=== PATIENT | female | born 1985 | race Caucasian/White ===

== ENCOUNTER 2016-09-12 19:27 | Observation (INO) | payer OTHER ==
[~2016-09-12] VITALS: Ht 154.9 cm; Wt 85.7 kg
[~2016-09-12 19:27] MED LIST: BENZ1TAB24 PO; LEXAPRO
--- NOTE | 2016-09-12 19:28 | NUR ---
PT DALLIN RODS. TAKEN TO BED 4
--- NOTE | 2016-09-12 19:30 | NUR ---
31Y F DALLIN FOR SYMPTOMS OF ALOC. [facility] STATES GRISELDA SUZANNA SHERRIPATY SAW HER WALKING UP AND DOWN THE STREET AND WHEN APPROACHED HER, SHE WAS HESITANT IN RESPONDING SO SHERRIFFS CALLED [facility] TO SEEK MEDICAL ATTENTION. [facility] STATES PT TOLD THEM SHE TOOK [facility] NOT TOO LONG AGO, BUT DID NOT STATES THAT HERE AT [place]. PT IS A BIT DISORIENTED, SHE DOES NOT KNOWN WHERE SHE IS, TIME OR DATE OTHER THEN HER NAME. AAOX1. PT DENIES ANY MEDICAL HX AT THE MOMENT, MORE SO UNOBTAINABLE. WHEN ASKED HER ALLERGY SHE STATES CONSTPATION, WHEN ASKED HER MEDICAL HX SHE STATES SHE NO ONE WILL ALLOW HER TO BUT [facility].
[2016-09-12 19:31] VITALS: BP 139/96
--- NOTE | 2016-09-12 19:40 | NUR ---
Dr. Mccullough evaluating patient at bedside.
[2016-09-12] MEDS ORDERED: LORazepam 1 MG TAB PO ONE (19:45)
--- NOTE | 2016-09-12 20:03 | NUR ---
Blood for labwork drawn
[2016-09-12 20:23] LABS: BASOPHILS # (AUTO) 0.1 K/uL (0.00-0.22); EOSINOPHILS # (AUTO) 0.1 K/uL (0-0.4); EOSINOPHILS % (AUTO) 1.3 % (0.0-4.0); HEMATOCRIT 38.8 % (36-48); HEMOGLOBIN 12.9 g/dL (12.0-16.0); LYMPHOCYTES # (AUTO) 1.9 K/uL (2.5-16.5); LYMPHOCYTES % (AUTO) 25.1 % (20.5-51.1); MEAN CORPUSCULAR HEMOGLOBIN 31 pg (27-31); MEAN CORPUSCULAR HGB CONC 33 g/dL (33-37); MEAN CORPUSCULAR VOLUME 93 fL (80-94); MONOCYTES # (AUTO) 0.4 K/uL (0.8-1.0); MONOCYTES % (AUTO) 5.6 % (1.7-9.3); PLATELET COUNT (AUTO) 259 K/uL (140-450); RED BLOOD CELL COUNT(AUTO) 4.18 MIL/uL (4.20-5.40); RED CELL DISTRIBUTION WIDTH 11.5 % (11.6-13.7); WHITE BLOOD COUNT (AUTO) 7.5 K/uL (4.8-10.8)
[2016-09-12 20:37] LABS: APPEARANCE,URINE CLEAR (CLEAR); BILIRUBIN,URINE NEGATIVE (NEGATIVE); BLOOD, URINE NEGATIVE (NEGATIVE); LEUKOCYTE ESTERASE ,URINE NEGATIVE (NEGATIVE); NITRITE, URINE NEGATIVE (NEGATIVE); PH,URINE 5.5 (5.0-9.0); PROTEIN,URINE NEGATIVE (NEGATIVE); UGLUCOSE NEGATIVE (NEGATIVE); UROBILINOGEN,URINE 0.2 EU/dL (0.2 - 1)
[2016-09-12 20:39] LABS: ALANINE AMINOTRANSFERASE 25 U/L (12-78); ALBUMIN 3.9 g/dL (3.4-5.0); ALCOHOL, BLOOD < 3 mg/dL (<3); ALKALINE PHOSPHATASE 72 U/L (46-116); ASPARTATE AMINOTRANSFERASE 17 U/L (15-37); CALCIUM 8.7 mg/dL (8.5-10.1); CARBON DIOXIDE 26.5 mmol/L (21-32); CREATINE KINASE, TOTAL 81 U/L (26-192); CREATININE 0.8 mg/dL (0.6-1.3); GFR ARICAN-AMERICAN 107 mL/min (>90); GFR NON ARICAN-AMERICAN 88 mL/min (>90); GLUCOSE 104 mg/dL (74-106); SALICYLATE < 2.8 mg/dL (2.8-20.0); TOTAL BILIRUBIN 0.4 mg/dL (0.0-1.0); TOTAL PROTEIN, SERUM 7.8 g/dL (6.4-8.2); UREA NITROGEN, BLOOD 13 mg/dL (7-18)
[2016-09-12 20:40] LABS: ACETAMINOPHEN < 0.5 ug/ml (10-30)
[2016-09-12 20:40] LABS: COLOR,URINE AMBER (YELLOW)
[2016-09-12 20:41] LABS: BACTERIA,URINE None Seen /HPF (None Seen); RBC,URINE NONE SEEN /HPF (0-5); SQUAMOUS EPITHELIAL CELL,UR None Seen /LPF (0-3 (FEW)); WBC,URINE NONE SEEN /HPF (0-5)
[2016-09-12 20:46] LABS: ANION GAP 12.6 (8-16); CHLORIDE 104 mmol/L (98-107); POTASSIUM 4.1 mmol/L (3.5-5.1); SODIUM SERUM 139 mmol/L (136-145)
[2016-09-12 20:56] LABS: AMPHETAMINE, URINE NEG. ng/ml (NEG <=1000); BARBITURATE, URINE NEG. ng/ml (NEG <=200); BENZODIAZEPINE, URINE NEG. ng/mL (NEG <=200); CANNABINOID, URINE NEG. ng/mL (NEG <=50); COCAINE, URINE NEG. ng/mL (NEG <=300); OPIATE, URINE NEG. ng/mL (NEG <=2000); PHENCYCLIDINE SCREEN,URINE NEG. ng/mL (NEG <=25)
--- NOTE | 2016-09-12 22:07 | NUR ---
[place] [employer] AT BEDSIDE
--- NOTE | 2016-09-12 22:43 | NUR ---
PT PLACED ON A 5150 HOLD BY BALTA GARNER
--- NOTE | 2016-09-12 23:00 | NUR ---
Patient appears to be resting comfortably in bed. Vital Signs within normal limits. Respirations even and unlabored, NO SIGNS OF DISTRESS AT THE MOMENT. PT CONTINUES TO BE COOPERATIVE AND CALM. PT STATES SHE IS TALKING TO HER SISTER AND HER SISTER IS YELLING AT HER, BUT PT HAS NO PHONE DEVICE TO TALK, MERELY TALKING TO HERSELF.
--- NOTE | 2016-09-12 23:00 | NUR ---
PT STATES VOICES ARE NON VIOLENT, DOES NOT HAVE ANY INTENTIONS TO HURT HERSELF OR OTHERS.
--- NOTE | 2016-09-12 23:08 | NUR ---
PT MOVED TO BED 3
[2016-09-12] MEDS ORDERED: ONDANSETRON 4 MG/2 ML VIAL IVP PRN (23:30)
[2016-09-12] MEDS ORDERED: LORazepam 2 MG/ML VIAL IVP PRN (23:30)
[2016-09-12] MEDS ORDERED: ACETAMINOPHEN 325 MG TAB PO PRN (23:30)
--- NOTE | 2016-09-12 23:44 | NUR ---
Patient will be admitted to care of DR POLLOCK. Admited to MS 110B. Will go to room 110B. Belongings list completed. Report to KARIN FRIED .
[2016-09-13] VITALS: BP 108/66
--- NOTE | 2016-09-13 | NUR ---
ADMITTED A PATIENT FROM ER, TRANSPORTED VIA WHEELCHAIR BY ER NURSE. PATIENT IS ALERT AND AWAKE, CALM AND COOPERATIVE. DENIES PAIN AT THIS TIME. ON ROOM AIR, HAS NO S/S OF RESPIRATORY DISTRESS/DISCOMFORT NOTED. IV SITE PATENT, DRY AND INTACT, SALINE LOCK. SKIN IS INTACT. MRSA SWABBING DONE. ID BAND UPDATED. V/S CHECKED. ROOM ORIENTATION DONE, PROVIDED HEALTH TEACHING, PLAN OF CARE DISCUSSED, VERBALIZED UNDERSTANDING. SAFETY MEASURES INITIATED, CALL LIGHT WITHIN REACH. WILL CONTINUE TO MONITOR.
--- NOTE | 2016-09-13 02:15 | NUR ---
PT CHECKED, EYES CLOSED, BREATHING EVEN AND UNLABORED. ON ROOM AIR. SITTER AT BEDSIDE.
--- NOTE | 2016-09-13 04:36 | NUR ---
PT SLEEPING. SITTER AT BEDSIDE. BREATHING EVEN AND UNLABORED. CALL LIGHT WITHIN REACH.
--- NOTE | 2016-09-13 06:11 | NUR ---
SITTER AT BEDSIDE. PT SLEEPING. SAFETY MEASURES CHECKED, CALL LIGHT WITHIN REACH.
--- NOTE | 2016-09-13 07:15 | NUR ---
REPORT GIVEN TO DAY SHIFT NURSE FOR CONTINUITY OF CARE. PT IN STABLE CONDITION.
--- NOTE | 2016-09-13 07:20 | NUR ---
RECEIVED REPORT FROM CORKY SCHEAFER. PT IS A/OX3, AMBULATORY, SKIN IS INTACT, IV ON THE RT AC, SALINE LOCK, PATENT, INTACT, FLUSHING WELL, NO S/S OF RESPIRATORY DISTRESS OR DISCOMFORT NOTED, DISCUSSED PLAN OF CARE WITH PT, PT VERBALIZED UNDERSTANDING, SAFETY/FALL PRECAUTIONS ARE AT BEDSIDE, SITTER (MANDY) IS AT BEDSIDE, CALL LIGHT IS WITHIN REACH, WILL CONTINUE TO MONITOR.
[2016-09-13 08:00] VITALS: BP 117/67
[2016-09-13] MEDS ORDERED: BENZTROPINE 1 MG TAB PO SCH (09:00)
--- NOTE | 2016-09-13 09:15 | NUR ---
PATIENT HAS BEEN SCREENED AND CATEGORIZED LOW NUTRITION RISK. PATIENT WILL BE SEEN WITHIN 7 DAYS OF ADMISSION. 09/19/[address]
--- NOTE | 2016-09-13 09:18 | NUR ---
DUE MEDICATIONS GIVEN, PT TOLERATED WELL, NO S/S OF RESPIRATORY DISTRESS OR DISCOMFORT NOTED, 1:1 SITTER IS AT BEDSIDE, CALL LIGHT WITHIN REACH, WILL CONTINUE TO MONITOR.
--- NOTE | 2016-09-13 09:30 | NUR ---
PAGED DR. KING TO FOLLOW UP WITH THE CONSULT. PT'S FACE SHEET FAXED TO DR. KING'S OFFICE, CONFIRMATION RECEIVED. AWAITING FOR CALL BACK.
--- NOTE | 2016-09-13 11:15 | NUR ---
PT WALKING DOWN THE REYNOLDS ACCOMPANIED BY SITTER RYNE).
--- NOTE | 2016-09-13 13:30 | NUR ---
PT IS SLEEPING IN BED AT THIS TIME, CALL LIGHT WITHIN REACH, WILL CONTINUE TO MONITOR.
--- NOTE | 2016-09-13 15:28 | NUR ---
CM NOTE: SENT PSYCH PLACEMENT INQUIRIES TO: [facility] PER KALEE OF [facility], THEY HAVE NO BED AVAILABLE PER JOSE MANUEL ALVES [facility], THEY HAVE NO BED AVAILABLE AND THEY HAVE NO CONTRACT WITH ADULT MEDICAL PER YUE OF [facility], THEY HAVE NO BED AVAILABLE AND THEY HAVE NO CONTRACT WITH ADULT MEDICAL PER ANNETTE OF [facility], THEY HAVE NO BED AVAILABLE
--- NOTE | 2016-09-13 15:30 | NUR ---
CALLED THE PATIENT'S MOM, MIGUEL ÁNGEL, I LET HER KNOW THE PATIENT WAS BEING DISCHARGED HOME PER PSYCH DOCTORS ORDERS. MIGUEL ÁNGEL SAID SHE WOULD BE ON HER WAY TO DIE GRINDER HER DAUGHTER.
[2016-09-13 16:00] VITALS: BP 108/78
--- NOTE | 2016-09-13 16:06 | NUR ---
SPOKE TO DR. PHILLIP I LET HER KNOW THE PATIENT WAS TAKING COGENTIN 1MG, PO DAILY AND LEXAPRO 5MG, PO DAILY, I GAVE DR. PHILLIP THE PATIENT'S PHARMACY INFORMATION WHICH IS [facility] IN [place], [place] ON RAY.
--- NOTE | 2016-09-13 16:10 | NUR ---
PT SEEN AND ASSESSED BY DR. YANG (PSYCHIATRY). [address] YANG SPOKE WITH DR. PHILLIP. NEW ORDERS GIVEN OVER THE PHONE.
[2016-09-13] MEDS ORDERED: ESCITALOPRAM 20 MG TAB PO SCH (16:30)
--- NOTE | 2016-09-13 17:42 | NUR ---
PT DISCHARGE INSTRUCTIONS GIVEN, ID WRIST BAND REMOVED, IV REMOVED, CATHETER TIP INTACT, PT DISCHARGED HOME ACCOMPANIED BY MOTHER, PT STABLE UPON DISCHARGE.
--- NOTE | 2016-09-13 17:43 | NUR ---
DISCHARGE INSTRUCTIONS GIVEN BY ASSIGNED RN CHLOÉ TO PT AND PT'S MOTHER. BOTH VERBALIZED UNDERSTANDING OF THE INSTRUCTIONS GIVEN TO FOLLOW UP WITH [facility] WITHIN 7 DAYS. PER PT, SHE HAS BEEN SEEN BY [facility]FORE AND WAS GIVEN PRESCRIPTIONS (PSYCH MEDS). PER PT SHE RUN OUT OF REFILLS, DR. PHILLIP GOT THE NUMBER OF PT'S PHARMACY OF CHOICE ([facility]) AND WILL REFILL PT'S PRESCRIPTIONS ELECTRONICALLY. PT ALREADY GIVEN HER PSYCH MEDS DOSE FOR TODAY.
--- NOTE | 2016-09-13 19:05 | NUR ---
RECEIVED A PHONE CALL FROM PT'S MOTHER MIGUEL ÁNGEL, SHE SAID DR. PHILLIP HAD PRESCRIBED ZYPREXA, WHICH IS THE MEDICATION HER DAUGHTER USUALLY TAKES, I LET HER KNOW SHE NEEDED TO LET THE PHARMACIST KNOW THAT SHE HAD NOT RECEIVED THE CORRECT RX SO THAT THEY COULD CONTACT DR. PHILLIP.
--- NOTE | 2016-09-13 20:00 | NUR ---
I CALLED [facility] IN [place] AT [phone] I LET THEM KNOW THE PT HAD PICKED UP A MEDICATION FOR ZYPREXA BUT THE PATIENT'S MOM SAID IT WAS NOT THE CORRECT MEDICATION, I LET THEM KNOW THE PATIENT HAD ALREADY BEEN DISCHARGED FROM THE HOSPITAL AND THEY NEEDED TO CONTACT THE PRESCRIBING DOCTOR, PHARMACIST ASKED WHICH MEDICATIONS WERE THE ONES THE PATIENT SHOULD HAVE RECEIVED I LET HER KNOW IT WAS THE COGENTIN AND LEXAPRO, PHARMACIST SAID THEY HAD A PRIMARY ON FILE WHO THEY COULD FAX OVER A REFILL REQUEST TO FOR THAT MEDICATION SO THEY WOULD GO AHEAD AND DO THAT.
[2016-09-14] MEDS ORDERED: ESCITALOPRAM 20 MG TAB PO SCH (09:00)
[2016-09-14] MEDS ORDERED: BENZTROPINE 1 MG TAB PO SCH (09:00)
== END 2016-09-13 17:49 | disposition home or self-care (01) ==
LOC: MED 19:27 → MTU 23:31
PROVIDERS: ADMIT Internal Medicine Pulmonary Disease; ATTEND Internal Medicine Pulmonary Disease
DX: F25.0 Schizoaffective disorder, bipolar type (principal); Z72.0 Tobacco use; Z72.89 Other problems related to lifestyle
CPT/HCPCS: 36415; 80053; 80305; 81001; 81025; 82550; 84484; 85025; 87081; 93005; 96374; 99285; G0378; G0480; G0482; J2060

== ENCOUNTER 2017-02-20 15:05 | Emergency (ER) | payer OTHER ==
[~2017-02-20] VITALS: Ht 160 cm; Wt 90.7 kg
[~2017-02-20 15:05] MED LIST changes: -BENZ1TAB24 PO; +BENZ1TAB42 PO; +DIVA500T1 PO; -LEXAPRO; +OLAN2.5T1 PO; +RISP2TAB29 PO
[2017-02-20 15:07] VITALS: BP 99/72
--- NOTE | 2017-02-20 15:46 | NUR ---
PATIENT TO BED 12 AT THIS TIME.
--- NOTE | 2017-02-20 15:48 | NUR ---
PATIENT IS A 32 YO FEMALE BIB SELF FOR MEDICATION REFILL BENZTROPINE FOR PSYCH MEDS. SHE IS AWAKE AND ALERT ABLE TO AMBULATE AND TAKES HER MEDS REGULARLY. NO ACUTE DISTRESS SEEN IN OVERFLOW ONE BY ADOLFO.
[2017-02-20 15:58] VITALS: BP 99/72
--- NOTE | 2017-02-20 15:59 | NUR ---
Patient discharged with v/s stable. Written and verbal after care instructions given and explained. Patient alert, oriented and verbalized understanding of instructions. Ambulatory with steady gait. All questions addressed prior to discharge. ID band removed. Patient advised to follow up with PMD. Rx of BENZTROPINE AND TOPICAL CREAM given. Patient educated on indication of medication including possible reaction and side effects. Opportunity to ask questions provided and answered.
== END 2017-02-20 15:58 | disposition home or self-care (01) ==
LOC: MED 15:05
DX: Z76.0 Encounter for issue of repeat prescription (principal); F20.89 Other schizophrenia; B35.3 Tinea pedis; Z79.899 Other long term (current) drug therapy; Z88.8 Allergy status to other drugs, medicaments and biological substances
CPT/HCPCS: 99283

== ENCOUNTER 2017-04-01 10:42 | Emergency (ER) | payer OTHER ==
[~2017-04-01] VITALS: Ht 162.6 cm; Wt 77.1 kg
--- NOTE | 2017-04-01 10:42 | NUR ---
Patient was BIBA BLS.
[2017-04-01 10:46] VITALS: BP 144/96
--- NOTE | 2017-04-01 10:47 | NUR ---
Patient taken to bed 06.
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
--- NOTE | 2017-04-01 10:59 | NUR ---
PT STATES HEARING VOICES AT THIS TIME;ASKED PT WHAT DOES THE VOICES TELL HER;PT STATES THEY WANT ME TO HEAR THEM"WILL CONTINUE TO MONITOR PT.
[2017-04-01] MEDS ORDERED: LORazepam 1 MG TAB PO ONE (11:00)
[2017-04-01] MEDS ORDERED: diphenhydrAMINE 50 MG/ML VIAL IM ONE (11:15)
--- NOTE | 2017-04-01 11:20 | NUR ---
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
--- NOTE | 2017-04-01 11:30 | NUR ---
RINKU, WILL DIRECTOR PERSONAL PATIENT TO TAKE HOME. [phone]
--- NOTE | 2017-04-01 11:35 | NUR ---
SKED PT IF SHE HAS THE INTENTION TO HURT HERSELF OR OTHER PEOPLE;PT STATES "NO";PT CONTINUE TALKING TO HERSELF;WILL CONTIUE TO MONITOR.
[2017-04-01 11:42] LABS: BARBITURATE, URINE NEG. ng/ml (NEG <=200); BENZODIAZEPINE, URINE NEG. ng/mL (NEG <=200); CANNABINOID, URINE NEG. ng/mL (NEG <=50); COCAINE, URINE NEG. ng/mL (NEG <=300); OPIATE, URINE NEG. ng/mL (NEG <=2000); PHENCYCLIDINE SCREEN,URINE NEG. ng/mL (NEG <=25)
--- NOTE | 2017-04-01 12:10 | NUR ---
DR HICKEY TALKED TO PT'S FRIEND--RINKU
[2017-04-01 12:22] VITALS: BP 138/91
--- NOTE | 2017-04-01 12:22 | NUR ---
Patient discharged with v/s stable. Written and verbal after care instructions given and explained. Patient verbalized understanding. Ambulatory with steady gait. All questions addressed prior to discharge. Advised to follow up with PMD.PT WAS PICKED UP BY
== END 2017-04-01 12:22 | disposition home or self-care (01) ==
LOC: MED 10:42
DX: F41.9 Anxiety disorder, unspecified (principal); F20.9 Schizophrenia, unspecified; Z88.8 Allergy status to other drugs, medicaments and biological substances
CPT/HCPCS: 80305; 81002; 81025; 96372; 99284; J1200

== ENCOUNTER 2019-05-28 12:12 | Emergency (ER) | payer MEDICAID, OTHER ==
[~2019-05-28] VITALS: Ht 162.6 cm; Wt 74.8 kg
[~2019-05-28 12:12] MED LIST changes: +BENZ-203 PO; -BENZ1TAB42 PO; -DIVA500T1 PO; -RISP2TAB29 PO
[2019-05-28 12:22] VITALS: BP 140/79
--- NOTE | 2019-05-28 13:44 | NUR ---
Patient ambulated to chair C. RN evaluating patient.
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
[2019-05-28] MEDS ORDERED: KETOROLAC 30 MG/ML VIAL ONE (14:01)
[2019-05-28] MEDS ORDERED: KETOROLAC 30 MG/ML VIAL IM ONE (14:05)
--- NOTE | 2019-05-28 14:17 | NUR ---
ANTOINE Martinez evaluating patient.
[2019-05-28 15:31] VITALS: BP 140/79
== END 2019-05-28 15:30 | disposition home or self-care (01) ==
LOC: MED 12:12
DX: S80.02XA Contusion of left knee, initial encounter (principal); M79.10 Myalgia, unspecified site; Z79.899 Other long term (current) drug therapy; Z88.8 Allergy status to other drugs, medicaments and biological substances; Y04.8XXA Assault by other bodily force, initial encounter; Y93.89 Activity, other specified; Y92.89 Other specified places as the place of occurrence of the external cause; Y99.8 Other external cause status
CPT/HCPCS: 73562; 96372; 99283; J1885

== ENCOUNTER 2019-06-14 01:55 | Emergency (ER) | payer MEDICAID ==
[~2019-06-14] VITALS: Ht 165.1 cm; Wt 68.0 kg
[2019-06-14 02:03] VITALS: BP 151/89
--- NOTE | 2019-06-14 02:08 | NUR ---
PT TAKEN TO CHAIR C
--- NOTE | 2019-06-14 02:11 | NUR ---
PT MOVED TO BED 8
--- NOTE | 2019-06-14 02:14 | NUR ---
PT RAN AWAY FROM BED, WAS REDIRECTED TO BED, ERMD NOTIFIED. PT STATEMENTS DO NOT MAKE SENSE, SAYS RANDOM WORDS
[2019-06-14] MEDS ORDERED: HALOPERIDOL IM 5 MG/ML VIAL IM ONE (02:15)
[2019-06-14] MEDS ORDERED: LORazepam 2 MG/ML VIAL IM ONE (02:15)
[2019-06-14] MEDS ORDERED: diphenhydrAMINE 50 MG/ML VIAL IM ONE (02:15)
--- NOTE | 2019-06-14 02:15 | NUR ---
PT STANDING ON BED AND UNABLE TO REMAIN STILL IN BED. PT PLACED IN SOFT RESTRAINTS.
[2019-06-14] MEDS ORDERED: NACL 0.9% 1,000 ML IV ONE (02:25)
[2019-06-14 02:34] LABS: BASOPHILS % (AUTO) 0.3 % (0.0-2.0); HEMATOCRIT 40.4 % (36-48); HEMOGLOBIN 13.6 g/dL (12.0-16.0); LYMPHOCYTES # (AUTO) 2.1 K/uL (2.5-16.5); LYMPHOCYTES % (AUTO) 14.6 % (20.5-51.1); MEAN CORPUSCULAR HEMOGLOBIN 32 pg (27-31); MEAN CORPUSCULAR HGB CONC 34 g/dL (33-37); MEAN CORPUSCULAR VOLUME 94.9 fL (80-94); MONOCYTES # (AUTO) 0.5 K/uL (0.8-1.0); MONOCYTES % (AUTO) 3.6 % (1.7-9.3); NEUTROPHILS # (AUTO) 11.9 K/uL (1.8-7.7); NEUTROPHILS % (AUTO) 81.5 % (42.2-75.2); PLATELET COUNT (AUTO) 352 K/uL (140-450); RED BLOOD CELL COUNT(AUTO) 4.26 MIL/uL (4.20-5.40); WHITE BLOOD COUNT (AUTO) 14.6 K/uL (4.8-10.8)
[2019-06-14 02:55] LABS: ALBUMIN 4.8 g/dL (3.4-5.0); ANION GAP 20.4 (8-16); ASPARTATE AMINOTRANSFERASE 21 U/L (15-37); CARBON DIOXIDE 21.1 mmol/L (21-32); CHLORIDE 99 mmol/L (98-107); CREATININE 1.2 mg/dL (0.6-1.3); GFR ARICAN-AMERICAN 66 mL/min (>90); GLUCOSE 133 mg/dL (74-106); POTASSIUM 3.5 mmol/L (3.5-5.1); SODIUM SERUM 137 mmol/L (136-145); TOTAL BILIRUBIN 0.6 mg/dL (0.0-1.0); UREA NITROGEN, BLOOD 18 mg/dL (7-18)
[2019-06-14 02:56] LABS: ACETAMINOPHEN < 0.5 ug/ml (10-30); SALICYLATE < 2.8 mg/dL (2.8-20.0)
--- NOTE | 2019-06-14 03:20 | NUR ---
PT IS CALM AND ABLE TO ANSWER QUESTIONS. 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 PT DENIES ALCOHOL USE. +AUDITORY AND VISUAL HALLUCINATIONS. PT DENIES THOUGHTS OF HARMING HERSELF. MEDHX- SCHIZOAFFECTIVE BIPOLAR DISORDER
--- NOTE | 2019-06-14 03:45 | NUR ---
PT MORE ALERT AND LUCID, ABLE TO ANSWER QUESTIONS APPROPIATELY. SOFT RESTRAINTS REMOVED FROM PT.
[2019-06-14 04:10] LABS: APPEARANCE,URINE CLOUDY (CLEAR); BILIRUBIN,URINE NEGATIVE (NEGATIVE); BLOOD, URINE 3+ (NEGATIVE); COLOR,URINE YELLOW (YELLOW); LEUKOCYTE ESTERASE ,URINE 1+ (NEGATIVE); NITRITE, URINE NEGATIVE (NEGATIVE); PH,URINE 5.5 (5.0-9.0); UGLUCOSE NEGATIVE (NEGATIVE)
[2019-06-14 04:11] LABS: BARBITURATE, URINE NEG. ng/ml (NEG <=200); BENZODIAZEPINE, URINE NEG. ng/mL (NEG <=200); CANNABINOID, URINE NEG. ng/mL (NEG <=50); COCAINE, URINE NEG. ng/mL (NEG <=300); OPIATE, URINE NEG. ng/mL (NEG <=2000); PHENCYCLIDINE SCREEN,URINE NEG. ng/mL (NEG <=25)
[2019-06-14 04:35] LABS: RBC,URINE TOO NUMEROUS TO COUN /HPF (0-5); WBC,URINE TOO MANY TO COUNT /HPF (0-5)
[2019-06-14] MEDS ORDERED: POTASSIUM CHLORIDE 10 MEQ TABER PO ONE (04:45)
--- NOTE | 2019-06-14 04:45 | NUR ---
PT REFUSED POTASSIUM MEDICATION. DR. COOK MADE AWARE.
[2019-06-14] MEDS ORDERED: cefTRIAXone 1,000 MG VIAL ONE (04:53)
--- NOTE | 2019-06-14 05:20 | NUR ---
PT UP TO ROADTEST. STEADY GAIT OBSERVED, DR. COOK MADE AWARE.
--- NOTE | 2019-06-14 05:24 | NUR ---
PT GOING TO UP FOR DISCHARGE. PT GIVEN PHONE TO CALL ROOMMATE KATERINE FOR A RIDE HOME
[2019-06-14 05:25] VITALS: BP 111/75
--- NOTE | 2019-06-14 05:50 | NUR ---
2ND ATTEMPT TO CALL PT ROOMMATE KATERINE, NO ANSWER AT THIS TIME
--- NOTE | 2019-06-14 05:59 | NUR ---
PT AMBULATED TO RESTROOM, STEADY GAIT OBSERVED
--- NOTE | 2019-06-14 06:25 | NUR ---
Patient discharged with v/s stable. Written and verbal after care instructions given and explained. Patient verbalized understanding. Ambulatory with steady gait. All questions addressed prior to discharge. Advised to follow up with PMD.
--- NOTE | 2019-06-18 11:32 | NUR ---
Late entry. Confirmed with RN that Rocephin IV completed at 0530
== END 2019-06-14 06:25 | disposition home or self-care (01) ==
LOC: MED 01:55
DX: F23 Brief psychotic disorder (principal); F15.10 Other stimulant abuse, uncomplicated; E87.6 Hypokalemia; N30.00 Acute cystitis without hematuria; F20.9 Schizophrenia, unspecified; Z88.8 Allergy status to other drugs, medicaments and biological substances; Z79.899 Other long term (current) drug therapy
CPT/HCPCS: 36415; 80053; 80305; 81001; 81025; 85025; 87086; 93005; 96361; 96365; 96372; 99284; G0480; G0482; J0696; J1200; J1630; J2060; J7030

== ENCOUNTER 2020-01-09 08:55 | Emergency (ER) | payer MEDICAID ==
[~2020-01-09] VITALS: Ht 160 cm; Wt 75.3 kg
[2020-01-09 08:58] VITALS: BP 141/75
--- NOTE | 2020-01-09 09:03 | NUR ---
AMB TO BED 5 Addendum: 01/09/20 at 0904 by BRETT CHC
--- NOTE | 2020-01-09 09:13 | NUR ---
DR. DOWNS EVALUATING PT AT BEDSIDE
[2020-01-09 09:42] VITALS: BP 141/75
--- NOTE | 2020-01-09 09:42 | NUR ---
pt refused to give info on dog bite report
--- NOTE | 2020-01-09 09:43 | NUR ---
Patient discharged with v/s stable. Written and verbal after care instructions given and explained. Patient alert, oriented and verbalized understanding of instructions. Ambulatory with to car. All questions addressed prior to discharge. ID band removed. Patient advised to follow up with PMD. Rx of augmentin given. Patient educated on indication of medication including possible reaction and side effects. Opportunity to ask questions provided and answered.
== END 2020-01-09 09:43 | disposition home or self-care (01) ==
LOC: MED 08:55
DX: S81.851A Open bite, right lower leg, initial encounter (principal); S81.852A Open bite, left lower leg, initial encounter; F15.90 Other stimulant use, unspecified, uncomplicated; Z79.899 Other long term (current) drug therapy; Z88.5 Allergy status to narcotic agent; Z88.8 Allergy status to other drugs, medicaments and biological substances; W54.0XXA Bitten by dog, initial encounter; Y93.89 Activity, other specified; Y92.89 Other specified places as the place of occurrence of the external cause; Y99.8 Other external cause status
CPT/HCPCS: 99283

== ENCOUNTER 2020-07-16 22:55 | Emergency (ER) | payer MEDICAID ==
--- NOTE | 2020-07-16 23:03 | NUR ---
CALLED TO BE TRIAGE, SHE DOESNT WANT TO BE SEEN BY ERMD. PATIENT LEFT WITHOUT BEING SEEN BY DR. DOWNS. NO FURTHER CARE PROVIDED FOR PATIENT.
== END 2020-07-16 23:03 | disposition left against medical advice (07) ==
LOC: MED 22:55
DX: M79.10 Myalgia, unspecified site (principal); Z53.21 Procedure and treatment not carried out due to patient leaving prior to being seen by health care provider

== ENCOUNTER 2020-12-14 01:45 | Emergency (ER) | payer MEDICAID, OTHER ==
[~2020-12-14] VITALS: Ht 162.6 cm; Wt 64.0 kg
[2020-12-14 01:50] VITALS: BP 131/81
--- NOTE | 2020-12-14 01:53 | NUR ---
TO LOBBY A/W BED AMBULATORY
--- NOTE | 2020-12-14 02:36 | NUR ---
PT AMBULATED TO BED 12
--- NOTE | 2020-12-14 02:50 | NUR ---
35 YO F BIB SELF WITH C/C OF MISSING PERIOD. PT STATED SHE MISSED HER PERIOD BUT FOUND IT TODAY AND IS WORRIED BECAUSE SHE HAS NOT HAD IT IN A LONG TIME. PT STATED SHE IS IRREGULAR, WANTS TO MAKE SURE SHE IS NOT .
[2020-12-14 03:10] VITALS: BP 131/81
== END 2020-12-14 03:10 | disposition home or self-care (01) ==
LOC: MED 01:45
DX: N91.5 Oligomenorrhea, unspecified (principal); Z88.5 Allergy status to narcotic agent; Z88.8 Allergy status to other drugs, medicaments and biological substances; Z79.899 Other long term (current) drug therapy; Z98.890 Other specified postprocedural states
CPT/HCPCS: 36415; 81025; 82553; 99282

== ENCOUNTER 2022-02-10 06:30 | Emergency (ER) | payer OTHER ==
[~2022-02-10] VITALS: Ht 160 cm; Wt 93.0 kg
[~2022-02-10 06:30] MED LIST changes: +BEN50 PO; -BENZ-203 PO; +BENZ-315 PO; +CEPH500C16 PO; +ESK300 PO; +RISP0.5T3 PO
[2022-02-10 06:34] VITALS: BP 143/78
--- NOTE | 2022-02-10 06:41 | NUR ---
pt to bed 01
--- NOTE | 2022-02-10 06:42 | NUR ---
PT AMBULATED TO ED 1, REPORT GIVEN TO COLTON FRIED
--- NOTE | 2022-02-10 06:47 | NUR ---
Dr. Hugo examining patient.
[2022-02-10] MEDS ORDERED: FAMOTIDINE 20 MG/2 ML VIAL IVP ONE (06:55)
[2022-02-10] MEDS ORDERED: ONDANSETRON 4 MG/2 ML VIAL IVP ONE (06:55)
[2022-02-10] MEDS ORDERED: KETOROLAC 30 MG/ML VIAL IVP ONE (06:55)
[2022-02-10] MEDS ORDERED: NACL 0.9% 1,000 ML IV SCH (06:55)
--- NOTE | 2022-02-10 07:20 | NUR ---
indirect fire infantryman at bedside
--- NOTE | 2022-02-10 07:20 | NUR ---
36/F WALKED IN C/O ABD PAIN AND VOMITING ONSET 3 AM. ON ROOM AIR. VITALS STABLE.
[2022-02-10 07:23] VITALS: BP 141/82
[2022-02-10 07:43] LABS: BASOPHILS % (AUTO) 0.5 % (0.0-2.0); EOSINOPHILS % (AUTO) 0.4 % (0.0-4.0); HEMATOCRIT 37.4 % (36-48); HEMOGLOBIN 12.9 g/dL (12.0-16.0); LYMPHOCYTES # (AUTO) 2.1 K/uL (2.5-16.5); LYMPHOCYTES % (AUTO) 23.3 % (20.5-51.1); MEAN CORPUSCULAR HEMOGLOBIN 33 pg (27-31); MEAN CORPUSCULAR HGB CONC 35 g/dL (33-37); MEAN CORPUSCULAR VOLUME 94.2 fL (80-94); MONOCYTES # (AUTO) 0.3 K/uL (0.8-1.0); MONOCYTES % (AUTO) 3.8 % (1.7-9.3); NEUTROPHILS # (AUTO) 6.3 K/uL (1.8-7.7); PLATELET COUNT (AUTO) 244 K/uL (140-450); RED BLOOD CELL COUNT(AUTO) 3.97 MIL/uL (4.20-5.40); RED CELL DISTRIBUTION WIDTH 12.7 % (11.6-13.7); WHITE BLOOD COUNT (AUTO) 8.8 K/uL (4.8-10.8)
[2022-02-10 07:52] LABS: ALBUMIN 3.6 g/dL (3.4-5.0); ANION GAP 12.7 (8-16); CARBON DIOXIDE 23.2 mmol/L (21-32); CREATININE 0.8 mg/dL (0.6-1.3); POTASSIUM 3.9 mmol/L (3.5-5.1); TOTAL BILIRUBIN 0.3 mg/dL (0.0-1.0)
--- NOTE | 2022-02-10 08:04 | NUR ---
PT AMBULATED TO RESTROOM
[2022-02-10] MEDS ORDERED: ACET-8386 PO (08:54)
[2022-02-10] MEDS ORDERED: ONDA-188 PO (08:54)
[2022-02-10] MEDS ORDERED: NAPR-1704 PO (08:54)
[2022-02-10 14:20] LABS: APPEARANCE,URINE CLEAR (CLEAR); BILIRUBIN,URINE NEGATIVE (NEGATIVE); BLOOD, URINE 2+ (NEGATIVE); COLOR,URINE YELLOW (YELLOW); LEUKOCYTE ESTERASE ,URINE NEGATIVE (NEGATIVE); NITRITE, URINE NEGATIVE (NEGATIVE); UGLUCOSE 1+ (NEGATIVE)
[2022-02-10 14:40] LABS: OTHER CASTS, URINE None Seen /LPF (None Seen); WBC,URINE 0-5 /HPF (0-5)
== END 2022-02-10 09:01 | disposition home or self-care (01) ==
LOC: MED 06:30
DX: K80.20 Calculus of gallbladder without cholecystitis without obstruction (principal); R07.89 Other chest pain; R10.10 Upper abdominal pain, unspecified; R11.2 Nausea with vomiting, unspecified; F15.90 Other stimulant use, unspecified, uncomplicated; F20.9 Schizophrenia, unspecified; Z98.890 Other specified postprocedural states; Z88.5 Allergy status to narcotic agent; Z88.8 Allergy status to other drugs, medicaments and biological substances; Z79.899 Other long term (current) drug therapy
CPT/HCPCS: 36415; 76705; 80053; 81001; 81025; 83690; 85025; 93005; 96361; 96374; 96375; 99284; J1885; J2405; J3490; J7030; Q0092

== ENCOUNTER 2022-07-22 08:40 | Emergency (ER) | payer MEDICAID, OTHER ==
[~2022-07-22] VITALS: Ht 165.1 cm; Wt 92.5 kg
[~2022-07-22 08:40] MED LIST changes: +ACET-8905 PO; +NAPR-1704 PO; +ONDA-188 PO
[2022-07-22 08:46] VITALS: BP 115/82
--- NOTE | 2022-07-22 09:38 | NUR ---
AMBULATES FAST WITH STEADY GAIT, VOIDED URINE WITHOUT GIVING A SAMPLE. ASKED FOR PAIN MEDS, DID NOT TAKE ANY OTC SINCE ONSET OF BODY ACHES
[2022-07-22] MEDS ORDERED: IBUPROFEN 600 MG TAB PO ONE (09:45)
[2022-07-22] MEDS ORDERED: IBUPROFEN 600 MG TAB ONE (09:46)
[2022-07-22 10:32] LABS: APPEARANCE,URINE HAZY (CLEAR); BILIRUBIN,URINE NEGATIVE (NEGATIVE); BLOOD, URINE NEGATIVE (NEGATIVE); COLOR,URINE YELLOW (YELLOW); LEUKOCYTE ESTERASE ,URINE NEGATIVE (NEGATIVE); NITRITE, URINE NEGATIVE (NEGATIVE); PH,URINE 7.5 (5.0-9.0); UGLUCOSE NEGATIVE (NEGATIVE)
[2022-07-22] MEDS ORDERED: IBUP-2213 PO (11:05)
[2022-07-22] MEDS ORDERED: ONDA-188 SL (11:05)
[2022-07-22] MEDS ORDERED: TAM75 PO (11:06)
[2022-07-22 11:39] VITALS: BP 115/82
--- NOTE | 2022-07-22 11:41 | NUR ---
Patient discharged with v/s stable. Written and verbal after care instructions given and explained. Patient alert, oriented and verbalized understanding of instructions. Ambulatory with steady gait. All questions addressed prior to discharge. ID band removed. Patient advised to follow up with PMD. Rx of TAMIFLU, ZOFRAN given. Patient educated on indication of medication including possible reaction and side effects. Opportunity to ask questions provided and answered.
== END 2022-07-22 11:39 | disposition home or self-care (01) ==
LOC: MED 08:40
DX: J10.1 Influenza due to other identified influenza virus with other respiratory manifestations (principal); Z20.822 Contact with and (suspected) exposure to COVID-19; Z98.890 Other specified postprocedural states; F15.90 Other stimulant use, unspecified, uncomplicated; Z79.899 Other long term (current) drug therapy; Z79.1 Long term (current) use of non-steroidal anti-inflammatories (NSAID); Z79.891 Long term (current) use of opiate analgesic; Z79.2 Long term (current) use of antibiotics; Z88.8 Allergy status to other drugs, medicaments and biological substances
CPT/HCPCS: 81003; 81025; 99283

== ENCOUNTER 2022-11-15 17:21 | Emergency (ER) | payer MEDICAID ==
[~2022-11-15] VITALS: Ht 162.6 cm; Wt 89.4 kg
[~2022-11-15 17:21] MED LIST changes: +IBUP-2213 PO; +ONDA-188 SL; +TAM75 PO
[2022-11-15 17:40] VITALS: BP 125/91; PULSE 87; RESP 18; TEMP 97.9; O2SAT 98
--- NOTE | 2022-11-15 17:57 | NUR ---
DR. DIXON AT TO EVALUATE PT. PT IN CUSTODY IN HANDCUFFS. PT TO HAVE LABS AND X-RAYS PERFORMED. PT STABLE AT THIS TIME.
[2022-11-15] MEDS ORDERED: KETOROLAC 30 MG/ML VIAL IM ONE (18:20)
[2022-11-15 18:45] VITALS: O2SAT 98
[2022-11-15 18:52] LABS: BASOPHILS # (AUTO) 0.1 K/uL (0.00-0.22); BASOPHILS % (AUTO) 0.7 % (0.0-2.0); EOSINOPHILS # (AUTO) 0.1 K/uL (0-0.4); EOSINOPHILS % (AUTO) 0.8 % (0.0-4.0); HEMOGLOBIN 13.3 g/dL (12.0-16.0); LYMPHOCYTES % (AUTO) 33.1 % (20.5-51.1); MEAN CORPUSCULAR HEMOGLOBIN 33 pg (27-31); MEAN CORPUSCULAR HGB CONC 34 g/dL (33-37); MEAN CORPUSCULAR VOLUME 95.7 fL (80-94); MONOCYTES # (AUTO) 0.4 K/uL (0.8-1.0); MONOCYTES % (AUTO) 4.8 % (1.7-9.3); NEUTROPHILS # (AUTO) 5.6 K/uL (1.8-7.7); NEUTROPHILS % (AUTO) 60.6 % (42.2-75.2); PLATELET COUNT (AUTO) 251 K/uL (140-450); RED BLOOD CELL COUNT(AUTO) 4.08 MIL/uL (4.20-5.40); RED CELL DISTRIBUTION WIDTH 12.2 % (11.6-13.7); WHITE BLOOD COUNT (AUTO) 9.2 K/uL (4.8-10.8)
[2022-11-15 19:10] LABS: ALBUMIN 4.1 g/dL (3.4-5.0); ANION GAP 12.5 (8-16); CARBON DIOXIDE 25.7 mmol/L (21-32); CREATININE 0.9 mg/dL (0.6-1.3); POTASSIUM 4.2 mmol/L (3.5-5.1); TOTAL BILIRUBIN 0.4 mg/dL (0.0-1.0)
--- NOTE | 2022-11-15 19:38 | NUR ---
PT TOLERATING PO FLUIDS PER REQUEST. AMBULATED TO BR WITH STEADY GAIT TO VOID URINE
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
== END 2022-11-15 19:43 ==
LOC: MED 17:21
DX: R10.9 Unspecified abdominal pain (principal); M25.511 Pain in right shoulder; M79.675 Pain in left toe(s); E11.9 Type 2 diabetes mellitus without complications; Z79.4 Long term (current) use of insulin; Z88.8 Allergy status to other drugs, medicaments and biological substances; Z79.899 Other long term (current) drug therapy
CPT/HCPCS: 36415; 73030; 73630; 80053; 81025; 83690; 85025; 96372; 99284; J1885

== ENCOUNTER 2023-04-03 15:00 | Emergency (ER) | payer MEDICAID, OTHER ==
[~2023-04-03] VITALS: Ht 162.6 cm; Wt 86.6 kg
[2023-04-03 16:43] VITALS: BP 118/76; PULSE 72; RESP 16; TEMP 98.7; O2SAT 97
[2023-04-03] MEDS ORDERED: FLONAS NS ×2 (17:05→17:19)
[2023-04-03] MEDS ORDERED: GUAI237L61 PO ×2 (17:05→17:19)
[2023-04-03] MEDS ORDERED: ACET-2619 PO ×2 (17:05→17:19)
[2023-04-03 17:25] LABS: FLU A ANTIGEN negative (NEGATIVE); FLU B ANTIGEN negative (NEGATIVE)
== END 2023-04-03 17:20 | disposition home or self-care (01) ==
LOC: MED 15:00
DX: J06.9 Acute upper respiratory infection, unspecified (principal); Z20.822 Contact with and (suspected) exposure to COVID-19; E11.9 Type 2 diabetes mellitus without complications; Z79.899 Other long term (current) drug therapy; Z79.1 Long term (current) use of non-steroidal anti-inflammatories (NSAID); Z79.2 Long term (current) use of antibiotics; Z88.8 Allergy status to other drugs, medicaments and biological substances
CPT/HCPCS: 71046; 99284

== ENCOUNTER 2023-04-08 15:17 | Emergency (ER) | payer OTHER ==
[~2023-04-08] VITALS: Ht 167.6 cm; Wt 72.6 kg
[~2023-04-08 15:17] MED LIST changes: +ACET-2619 PO; +FLONAS NS; +GUAI237L61 PO
[2023-04-08 16:17] VITALS: BP 138/87; PULSE 98; RESP 18; TEMP 98; O2SAT 98
[2023-04-08 18:37] VITALS: BP 122/84; PULSE 88; RESP 18; TEMP 98; O2SAT 99
== END 2023-04-08 18:37 | disposition home or self-care (01) ==
LOC: MED 15:17
DX: F20.9 Schizophrenia, unspecified (principal); Z88.8 Allergy status to other drugs, medicaments and biological substances; Z79.899 Other long term (current) drug therapy
CPT/HCPCS: 99281

== ENCOUNTER 2023-06-30 03:20 | Emergency (ER) | payer MEDICAID, OTHER ==
[~2023-06-30] VITALS: Ht 160 cm; Wt 85.3 kg
[2023-06-30 03:25] VITALS: BP 126/90; PULSE 92; RESP 17; TEMP 98; O2SAT 99
[2023-06-30] MEDS: IBUPROFEN 600 MG TAB PO ONE (04:03)
[2023-06-30] MEDS ORDERED: NAPR-54 PO (04:37)
[2023-06-30 04:49] VITALS: BP 126/90; PULSE 92; RESP 17; TEMP 98; O2SAT 99
== END 2023-06-30 04:49 | disposition home or self-care (01) ==
LOC: MED 03:20
DX: S93.602A Unspecified sprain of left foot, initial encounter (principal); S93.601A Unspecified sprain of right foot, initial encounter; E11.9 Type 2 diabetes mellitus without complications; Z79.899 Other long term (current) drug therapy; Z88.8 Allergy status to other drugs, medicaments and biological substances; X58.XXXA Exposure to other specified factors, initial encounter; Y92.89 Other specified places as the place of occurrence of the external cause; Y93.01 Activity, walking, marching and hiking; Y99.8 Other external cause status
CPT/HCPCS: 99282

== ENCOUNTER 2023-07-12 00:10 | Emergency (ER) | payer MEDICAID, OTHER ==
[~2023-07-12] VITALS: Ht 165.1 cm; Wt 97.5 kg
[~2023-07-12 00:10] MED LIST changes: +NAPR-54 PO
[2023-07-12 00:15] VITALS: BP 148/96; PULSE 96; RESP 16; TEMP 97.6; O2SAT 98
[2023-07-12 01:35] LABS: BASOPHILS # (AUTO) 0.1 K/uL (0.00-0.22); BASOPHILS % (AUTO) 0.7 % (0.0-2.0); EOSINOPHILS # (AUTO) 0.1 K/uL (0-0.4); EOSINOPHILS % (AUTO) 1.4 % (0.0-4.0); HEMATOCRIT 37.9 % (36-48); HEMOGLOBIN 13.2 g/dL (12.0-16.0); LYMPHOCYTES # (AUTO) 3.2 K/uL (2.5-16.5); LYMPHOCYTES % (AUTO) 35.4 % (20.5-51.1); MEAN CORPUSCULAR HEMOGLOBIN 33 pg (27-31); MEAN CORPUSCULAR HGB CONC 35 g/dL (33-37); MEAN CORPUSCULAR VOLUME 95.6 fL (80-94); MONOCYTES # (AUTO) 0.7 K/uL (0.8-1.0); MONOCYTES % (AUTO) 7.4 % (1.7-9.3); NEUTROPHILS % (AUTO) 55.1 % (42.2-75.2); PLATELET COUNT (AUTO) 263 K/uL (140-450); RED BLOOD CELL COUNT(AUTO) 3.97 MIL/uL (4.20-5.40); RED CELL DISTRIBUTION WIDTH 12.5 % (11.6-13.7)
[2023-07-12 01:41] LABS: BARBITURATE, URINE NEGATIVE ng/ml (NEG <=200)
[2023-07-12 01:42] LABS: AMPHETAMINE, URINE NEGATIVE ng/ml (NEG <=1000); BENZODIAZEPINE, URINE NEGATIVE ng/mL (NEG <=200); CANNABINOID, URINE NEGATIVE ng/mL (NEG <=50); COCAINE, URINE NEGATIVE ng/mL (NEG <=300); OPIATE, URINE NEGATIVE ng/mL (NEG <=2000); PHENCYCLIDINE SCREEN,URINE NEGATIVE ng/mL (NEG <=25)
[2023-07-12 01:50] LABS: ALBUMIN 3.8 g/dL (3.4-5.0); ANION GAP 9.9 (8-16); CALCIUM 8.5 mg/dL (8.5-10.1); CARBON DIOXIDE 29.9 mmol/L (21-32); CREATININE 0.8 mg/dL (0.6-1.3); POTASSIUM 3.8 mmol/L (3.5-5.1); TOTAL BILIRUBIN 0.2 mg/dL (0.0-1.0)
[2023-07-12] MEDS ORDERED: QUEtiapine FUMARATE 100 MG TAB ONE (05:30)
[2023-07-12] MEDS: QUEtiapine FUMARATE 100 MG TAB PO ONE (05:31)
[2023-07-12] MEDS: LORATADINE 10 MG TAB PO ONE (09:16)
[2023-07-12 14:09] VITALS: BP 119/61; PULSE 102; RESP 20; TEMP 98.1; O2SAT 99
== END 2023-07-12 14:09 ==
LOC: MED 00:10
DX: F29 Unspecified psychosis not due to a substance or known physiological condition (principal); Z20.822 Contact with and (suspected) exposure to COVID-19; R45.851 Suicidal ideations; E11.9 Type 2 diabetes mellitus without complications; Z88.8 Allergy status to other drugs, medicaments and biological substances; Z79.4 Long term (current) use of insulin; Z79.899 Other long term (current) drug therapy
CPT/HCPCS: 36415; 80053; 80305; 81025; 85025; 87635-QW; 93005; 99285

== ENCOUNTER 2023-07-21 19:09 | Emergency (ER) | payer OTHER ==
[~2023-07-21] VITALS: Ht 162.6 cm; Wt 87.1 kg
[2023-07-21 19:35] VITALS: BP 126/88; PULSE 90; RESP 17; TEMP 97.8; O2SAT 98
[2023-07-21 20:24] LABS: FLU A ANTIGEN negative (NEGATIVE); FLU B ANTIGEN negative (NEGATIVE)
[2023-07-21] MEDS: KETOROLAC 30 MG/ML VIAL IM ONE (22:12)
[2023-07-21] MEDS ORDERED: AMOX500C25 PO (23:03)
[2023-07-21] MEDS ORDERED: NAPR-54 PO (23:03)
== END 2023-07-21 23:38 | disposition home or self-care (01) ==
LOC: MED 19:09
DX: J02.9 Acute pharyngitis, unspecified (principal); Z20.822 Contact with and (suspected) exposure to COVID-19; E11.9 Type 2 diabetes mellitus without complications; Z79.899 Other long term (current) drug therapy; Z88.8 Allergy status to other drugs, medicaments and biological substances
CPT/HCPCS: 71045; 87081; 87426; 87804; 96372; 99284; J1885

== ENCOUNTER 2023-08-13 20:34 | Emergency (ER) | payer OTHER ==
[~2023-08-13] VITALS: Ht 162.6 cm; Wt 87.5 kg
[~2023-08-13 20:34] MED LIST changes: +AMOX500C25 PO
[2023-08-13 20:35] VITALS: BP 129/81; PULSE 89; RESP 18; TEMP 97.8; O2SAT 96
[2023-08-13] MEDS: KETOROLAC 60 MG/2 ML VIAL IM ONE (21:21)
[2023-08-13] MEDS ORDERED: IBUP-2213 PO (21:24)
[2023-08-13] MEDS ORDERED: CIPR500T4 PO (21:24)
[2023-08-13 21:32] VITALS: BP 127/79; PULSE 89; RESP 17; TEMP 97.9; O2SAT 97
== END 2023-08-13 21:32 | disposition home or self-care (01) ==
LOC: MED 20:34
DX: N39.0 Urinary tract infection, site not specified (principal); M25.521 Pain in right elbow; M25.522 Pain in left elbow; Z88.8 Allergy status to other drugs, medicaments and biological substances; Z79.899 Other long term (current) drug therapy
CPT/HCPCS: 81002; 81025; 96372; 99283; J1885

== ENCOUNTER 2023-10-05 20:10 | Emergency (ER) | payer OTHER ==
[~2023-10-05] VITALS: Ht 160 cm; Wt 94.3 kg
[~2023-10-05 20:10] MED LIST changes: +CIPR500T4 PO; +NAPR-337 PO; -NAPR-54 PO
[2023-10-05 20:33] VITALS: BP 139/83; PULSE 80; RESP 20; O2SAT 97
[2023-10-05] MEDS: LIDOCAINE MPF 1% 10 MG/ML VIAL INJ ONE (21:24)
[2023-10-05] MEDS ORDERED: CEPH-588 PO (21:51)
== END 2023-10-05 22:10 | disposition home or self-care (01) ==
LOC: MED 20:10
DX: L03.011 Cellulitis of right finger (principal); Z79.899 Other long term (current) drug therapy
CPT/HCPCS: 10060; 99283; J2001

== ENCOUNTER 2023-10-30 18:20 | Emergency (ER) | payer OTHER ==
[~2023-10-30] VITALS: Ht 160 cm; Wt 94.5 kg
[~2023-10-30 18:20] MED LIST changes: +CEPH-588 PO
[2023-10-30 18:40] VITALS: BP 133/87; PULSE 99; RESP 18; TEMP 98.1; O2SAT 98
[2023-10-30] MEDS ORDERED: IBUP-1842 PO (19:16)
[2023-10-30] MEDS ORDERED: BENZ-300 PO (19:16)
[2023-10-30] MEDS ORDERED: BENZ100C6 PO (19:16)
[2023-10-30 19:58] VITALS: BP 133/87; PULSE 99; RESP 18; TEMP 98.1; O2SAT 98
[2023-10-30 20:37] LABS: FLU A ANTIGEN negative (NEGATIVE)
[2023-10-30 20:40] LABS: FLU B ANTIGEN POSITIVE (NEGATIVE)
== END 2023-10-30 19:58 | disposition home or self-care (01) ==
LOC: MED 18:20
DX: J10.1 Influenza due to other identified influenza virus with other respiratory manifestations (principal); Z20.822 Contact with and (suspected) exposure to COVID-19; Z90.49 Acquired absence of other specified parts of digestive tract; Z79.1 Long term (current) use of non-steroidal anti-inflammatories (NSAID); Z98.890 Other specified postprocedural states; Z79.2 Long term (current) use of antibiotics; Z79.899 Other long term (current) drug therapy; Z88.8 Allergy status to other drugs, medicaments and biological substances
CPT/HCPCS: 99283